=== PATIENT | female | born 1995 | race Caucasian/White ===

== ENCOUNTER 2023-10-07 16:31 | Inpatient (IN) ==
[2023-10-07] MEDS ORDERED: LIDOCAINE 1% LOCAL 20 ML VIAL INFIL PRN (17:03)
[2023-10-07] MEDS ORDERED: OXYTOCIN 30 UNITS/NSS 30 UNITS/500 ML BAG IV PRN (17:03)
[2023-10-07] MEDS: LACTATED RINGER'S 1,000 ML IV PRN ×2 (17:14→21:46)
[2023-10-07] MEDS ORDERED: LIDOCAINE 2%/EPINEPHRINE 1:200,000 20 ML PF ONE (17:33)
[2023-10-07] MEDS ORDERED: ePHEDrine sulfate 50 MG/ML AMP ONE (17:33)
[2023-10-07] MEDS ORDERED: fentaNYL citrate PF 100 MCG/2 ML VIAL ONE (17:33)
[2023-10-07] MEDS ORDERED: SODIUM CHLORIDE 0.9% PF INJ 10 ML VIAL ONE (17:33)
[2023-10-07] MEDS ORDERED: fentANYL 2 MCG/ML BUPIVacaine 0.125%-NSS 100ML BAG ONE (17:33)
[2023-10-07] MEDS ORDERED: BUPIVACAINE 0.25% PF 30 ML VIAL ONE (17:33)
--- NOTE | 2023-10-07 17:37 | Labor Progress Brief Note ---
Date of Service October 07, 2023 Subjective Contractions all day since 3am. Presented to L&D this evening without notifying on-call first. No LOF, no VB. Initially evaluated by RN as MD not in building on her arrival, and was 3.5cm dilated at that point per Yasmeen Brewster. Noted to be smoker, GDM with noncompliance with dietary visit (has been using a family member's glucometer at home, EFW's small, and initial BG here 101), GBS neg, velamentous / accessory lobe, primi. Assessment & Plan (1) Normal labor: Plan: Admit, epidural on request, expt mgmt of labor. GDM but initial glucose normal and will have limited PO intake while here. Velamentous cord / accessory lobe noted. May need augmentation if pattern continues to be clustered, but so far there does seem to be cervical change despite the pattern. Physical Exam Genitourinary: FHT Cat 1 currently but reviewed and did have decel x3 min with prolonged ctx sh ortly after arrival. [place] with a grouping / dysfunctional pattern, Q6min roughly. 4/100/-2 Bulging bag present Some bloody show on labia Results & Data Vital Signs (Past 12 Hours) Vital Signs Temp Pulse Resp BP 10/07/23 16:52 96 H 118/70 10/07/23 16:47 98.1 F 20 Coding Level of Care Code None Diagnoses Normal labor O80; Z37.9
--- NOTE | 2023-10-07 18:32 | Anesthesiology Consultation ---
Date of Service October 07, 2023 Assessment & Plan (1) Encounter for pre-operative examination: Chart Review Chart Review: Acceptable Risk for Labor Epidural History Height/Weight Height: 5 ft Weight: 85.275 kg Allergies Allergy/AdvReac Type Severity Reaction Status Date / Time No Known Allergies Allergy Verified 10/05/23 13:12 Medications Home Medications Medication Instructions Recorded Confirmed Last Taken docosahexaenoic acid [ DHA] 1 tab PO DAILY 02/21/23 10/07/23 10/06/23 08:00 Active Medications Generic Name Dose Route Start Last Admin Trade Name Freq PRN Reason Stop Dose Admin Lactated Ringer's 1,000 mls @ 125 mls/hr 10/07/23 17:00 10/07/23 17:52 Lr IV 10/09/23 16:59 125 mls/hr .Q8H PRN Infusion L&D Protocol Protocol Past Medical History Medical History History of chicken pox Past Family History Family History Aunt Breast cancer Family/Other Cancer Great aunt cervix cancer Great uncle colon cancer Great aunt ovarian cancer Past Surgical History Surgical History Hx of tonsillectomy [place] teeth removed Social History Smoking Status: Current every day smoker Smoking cigarettes per day: 10 Do You Dip or Chew Tobacco: No Hx Alcohol Use: No Hx Substance Use: No Physical Exam Vital Signs Last Vital Signs Temp 36.7 C 10/07/23 16:47 Pulse 96 H 10/07/23 16:52 Resp 20 10/07/23 16:47 BP 118/70 10/07/23 16:52 Testing Laboratory Results 10/07/23 17:00 POC Glucose 101 H
[2023-10-07] MEDS ORDERED: fentANYL 2 MCG/ML BUPIVacaine 0.125%-NSS 100ML BAG EPI PRN (18:53)
[2023-10-07] MEDS ORDERED: NALOXONE HCL 0.4 MG/1 ML VIAL/CARP IV PRN (18:53)
[2023-10-07] MEDS ORDERED: SODIUM CHLORIDE 0.9% PF INJ 10 ML VIAL EPI PRN (18:53)
[2023-10-07] MEDS ORDERED: BUPIVACAINE 0.25% PF 30 ML VIAL EPI PRN (18:53)
[2023-10-07] MEDS ORDERED: BUPIVACAINE 0.25% PF 30 ML VIAL EPI STA (18:53)
[2023-10-07] MEDS ORDERED: ePHEDrine sulfate 50 MG/ML AMP IV PRN (18:53)
[2023-10-07] MEDS ORDERED: LIDOCAINE 2%/EPINEPHRINE 1:200,000 20 ML PF EPI STA (18:53)
[2023-10-07] MEDS ORDERED: ROPIVACAINE 0.5% PF 5 MG/ML 20 ML VIAL EPI PRN (18:53)
[2023-10-07] MEDS ORDERED: fentaNYL citrate PF 100 MCG/2 ML VIAL EPI PRN (18:53)
[2023-10-07] MEDS ORDERED: NALOXONE HCL 1 MG in SODIUM CHLORIDE 0.9% 1,000 ML IV PRN (18:53)
[2023-10-07] MEDS ORDERED: ONDANSETRON INJ 2 MG/ML 2 ML VIAL IV PRN (18:53)
[2023-10-07] MEDS ORDERED: fentaNYL citrate PF 100 MCG/2 ML VIAL EPI STA (18:53)
[2023-10-07] MEDS ORDERED: SODIUM CHLORIDE 0.9% PF INJ 10 ML VIAL EPI STA (18:53)
[2023-10-07] MEDS ORDERED: LIDOCAINE 2% MPF LOCAL 5 ML VIAL EPI PRN (18:53)
[2023-10-07 19:04] LABS: Hematocrit (blood only) 39.6 % (37.0-47.0); Hemoglobin 13.2 g/dl (12.0-16.0); Mean Corpuscular Hemoglobin 32.2 pg (25.0-34.0); Mean Corpuscular Hgb Conc 33.3 g/dL (32.0-36.0); Mean Corpuscular Volume 96.6 fL (80.0-100.0); Mean Platelet Volume 11.9 fL (9.4-12.4); Platelet Count 322 K/uL (130-400); RDW Coefficient of Variation 14.2 % (11.5-14.5); RDW Standard Deviation 50.8 fL (36.4-46.3); White Blood Count 17.98 K/ul (4.8-10.8)
--- NOTE | 2023-10-07 20:11 | Labor Progress Brief Note ---
Date of Service October 07, 2023 Subjective comfortable with epidural Assessment & Plan Admission and Anticipated Discharge Date Admission Date: October 07, 2023 Physical Exam Genitourinary: 5/100/-2 AROM clear to bloody fluid FHT 150 mod gertrude +acc -dec [place] Q2-4 Results & Data Vital Signs (Past 12 Hours) Vital Signs Temp Pulse Resp BP Pulse Ox O2 Del Method 10/07/23 20:09 95 H 120/68 10/07/23 20:05 121 H 94 10/07/23 20:00 95 H 90 10/07/23 19:55 91 H 90 10/07/23 19:53 95 H 108/54 L 10/07/23 19:50 96 H 91 10/07/23 19:45 87 94 10/07/23 19:40 87 95 10/07/23 19:39 90 93 10/07/23 19:38 84 114/57 L 10/07/23 19:35 81 96 10/07/23 19:30 89 96 10/07/23 19:25 86 96 10/07/23 19:23 89 117/67 10/07/23 19:20 114 H 98 10/07/23 19:15 101 H 97 10/07/23 19:10 98.6 F 93 H 18 97 10/07/23 19:08 98.6 F 18 10/07/23 19:08 Room Air 10/07/23 19:07 86 119/65 10/07/23 19:05 87 113/55 L 96 10/07/23 19:03 102 H 110/63 10/07/23 19:01 98 H 10/07/23 19:01 115 H 107/61 94 10/07/23 19:00 114 H 18 95 10/07/23 18:59 106 H 98/57 L 10/07/23 18:57 112 H 101/58 L 10/07/23 18:55 18 10/07/23 18:55 104 H 18 97/55 L 94 10/07/23 18:53 115 H 96/51 L 10/07/23 18:52 117 H 94 10/07/23 18:51 116 H 103/59 L 10/07/23 18:50 18 10/07/23 18:50 18 10/07/23 18:50 96 10/07/23 18:50 123 H 10/07/23 18:50 112 H 104/51 L 10/07/23 18:48 106 H 107/56 L 10/07/23 18:45 102 H 18 94 10/07/23 18:40 109 H 93 10/07/23 18:36 117 H 92 10/07/23 18:35 105 H 95 10/07/23 16:52 96 H 118/70 10/07/23 16:47 98.1 F 20 Coding Level of Care Code None
--- NOTE | 2023-10-08 01:34 | Delivery Summary ---
Vaginal Delivery Summary Date of Service October 08, 2023 Vaginal Delivery Summary DIAGNOSES: 1. [place] intrauterine at 39w2d gestation. 2. Spontaneous onset of labor. 3. Group B Streptococcus Neg. PROCEDURE: Spontaneous vaginal delivery and repair of second degree laceration. SURGEON: Vivi Bhat MD. SILK SCREEN PRINTER HELPER: None. ESTIMATED BLOOD LOSS: 250 mL. COMPLICATIONS: None. PLACENTA: Spontaneous and intact with a 3-vessel cord, centrally inserted, heav jeanette calcified, and with a small succenturiate lobe. DISPOSITION: Stable to labor and delivery. DESCRIPTION: The patient pushed well and brought the head to in DOA position. The infant's head was allowed to deliver with contraction force and no further active pushing, with the perineum protected during this time. There was one nuchal cord reduced at the perineum. The right shoulder was anterior. The shoulders and body delivered without any difficulty, and the was placed on the maternal abdomen. The cord was doubly clamped by the MD and then cut by the FOB. The placenta delivered spontaneously and was noted to be intact and with a 3VC. The cervix, vagina and perineum were examined and were found to have a second degre laceration. This was repaired with vicryl suture in the usual manner, with a crown stitch to rebuild the perineal body. The fundus was firm and lochia minimal immediately after delivery. [facility] Vaginal Delivery Charge Vaginal Delivery Codes: 77403 global code for the antepartum, delivery, and post-
[2023-10-08] MEDS ORDERED: DIPHTHERIA/TETANUS/PERTUSSIS Vaccine (Tdap, Age 7+yrs) 0.5mL SYR/VL IM ONE (01:37)
[2023-10-08] MEDS ORDERED: bisacodyL 10 MG SUPP PR PRN (01:37)
[2023-10-08] MEDS ORDERED: BENZOCAINE 20% SPRY 85 APPLN/85 GM CAN EXT PRN (01:37)
[2023-10-08] MEDS ORDERED: HYDROCORTISONE ACETATE 25 MG SUPP PR PRN (01:37)
[2023-10-08] MEDS ORDERED: oxyCODONE/ACETAMINOPHEN 5mg/325mg TAB PO PRN (01:37)
[2023-10-08] MEDS: IBUPROFEN 600 MG TAB PO PRN ×4 (02:27→23:48)
[2023-10-08] MEDS: PRENATAL VITAMIN 1 TAB PO SCH (07:53)
[2023-10-08] MEDS: DOCUSATE SODIUM 100 MG CAP PO SCH ×2 (07:53→19:15)
--- NOTE | 2023-10-08 09:14 | Anesthesia Procedure Note ---
Date of Service October 08, 2023 Anesthesia Post Epidural Note Vital Signs Vital Signs: Temp Pulse Resp BP Pulse Ox O2 Del Method 36.6 C 86 18 96/65 L 97 Room Air 10/08/23 08:00 10/08/23 08:00 10/08/23 08:00 10/08/23 08:00 10/08/23 08:00 10/08/23 08:00 Pain Intensity Bilateral Abdomen: Pain Intensity: 0 Notes Mental Status: alert / awake / arousable and participated in evaluation Nausea / Vomiting: adequately controlled Pain: adequately controlled Airway Patency, RR, SpO2: stable & adequate BP & HR: stable & adequate Hydration State: stable & adequate Neuraxial Anesthesia: was administered and sensory block is resolving Anesthetic Complications: no major complications apparent Epidural: Removed without complications and With tip intact
[2023-10-08] MEDS: ACETAMINOPHEN 325 MG TAB PO PRN (19:15)
[2023-10-09] MEDS: ACETAMINOPHEN 325 MG TAB PO PRN (05:45)
--- NOTE | 2023-10-09 05:55 | Obstetrical Progress Note ---
Date of Service October 09, 2023 Assessment & Plan (1) Encounter for care and examination after delivery: Plan -Pt doing well clinically -Vital signs reviewed and WNL -HGB reviewed -Blood type B+ -Rubella immune -Encourage ambulation -Monitor and control pain with Motrin prn -Monitor lochia -Encourage Admission and Anticipated Discharge Date Admission Date: October 07, 2023 Supervising Physician Co-Signing Physician Notes Resident Physician Supervision Note: I interviewed and examined the patient. Discussed with Dr. Phillips and agree with findings and plan as documented in the note. Any exceptions or clarifications are listed here: Pt doing well, eating, voiding, ambulating, bot tle feeding. abd soft ff 2 down, nt , nt calves. ppd#2 s/p , ready to go home, baby may need to stay and aware of nesting, instructions reviewed. f/u 6 wk pp check. bottle./rh pos/ri. Documented By: Lindsey Shelley MD, FACOG Subjective 27 yo post- day 1 s/p Ambulation: ambulating normally Voiding: no voiding problems Passing Gas:: Yes Diet Tolerance:: regular diet Lochia: Small Feeding Type: bottle feeding Current Pain Level: minimal Resting comfortably this AM in NAD. Denies ROSA, CP, SOB, N/V/D, LE pain/swelling. Review of Systems Review of Systems: All systems reviewed & are unremarkable except as noted in HPI & below Physical Exam Physical Exam: General: patient resting comfortably, NAD, non-toxic in appearance, AA&O x 4, answers questions appropriately. Skin: warm, dry, intact HEENT: NC/AT, anicteric sclera, conjunctiva without injection, moist mucus membranes. Heart: +S1/S2, regular, no m/r/g Lungs: equal air entry bilaterally, no rales/rhonchi/wheezes Abd: +BS, soft, NT/ND, uterine fundus firm at umbilicus Ext: warm, no clubbing/cyanosis or edema, Medina's neg. Neuro: nonfocal, patient AA&O x 4, speech intact, no facial droop, moving all extremities on command. Results & Data Vital Signs (Past 12 Hours) Vital Signs Temp Pulse Resp BP Pulse Ox O2 Del Method 10/08/23 23:50 36.7 C 64 18 102/65 100 Room Air 10/08/23 19:00 36.8 C 86 18 104/69 97 Room Air Resident Activity Tracking Resident Involvement: Resident Care Provided Care Provided: OB Delivery
[2023-10-09 06:22] LABS: Hematocrit (blood only) 38.2 % (37.0-47.0); Hemoglobin 12.8 g/dl (12.0-16.0); Mean Corpuscular Hemoglobin 32.2 pg (25.0-34.0); Mean Corpuscular Hgb Conc 33.5 g/dL (32.0-36.0); Mean Platelet Volume 11.4 fL (9.4-12.4); Platelet Count 317 K/uL (130-400); RDW Coefficient of Variation 14.2 % (11.5-14.5); RDW Standard Deviation 50.6 fL (36.4-46.3); Red Blood Count 3.98 M/uL (4.20-5.40); White Blood Count 14.59 K/ul (4.8-10.8)
[2023-10-09] MEDS: IBUPROFEN 600 MG TAB PO PRN (07:45)
[2023-10-09] MEDS: PRENATAL VITAMIN 1 TAB PO SCH (07:45)
[2023-10-09] MEDS: DOCUSATE SODIUM 100 MG CAP PO SCH (07:45)
== END 2023-10-09 10:42 | disposition home or self-care (01) | DRG 807 ==
LOC: OPB 16:31 → 4S1 16:34 → 4E2 10-08 03:55